=== PATIENT | male | born 1940 | race Caucasian/White ===

== ENCOUNTER → 2017-02-12 | Outpatient (CLI) | payer MEDICARE, OTHER | LOC: RT 11:24 | DX: G47.34 Idiopathic sleep related nonobstructive alveolar hypoventilation (principal) | CPT/HCPCS: 36600; 82803 ==

== ENCOUNTER → 2020-10-12 | Outpatient (CLI) | payer MEDICARE, OTHER | LOC: KOH-I 10:55 | DX: R91.8 Other nonspecific abnormal finding of lung field (principal) | CPT/HCPCS: 71250 ==

== ENCOUNTER → 2020-10-29 | Outpatient (CLI) | payer MEDICARE, OTHER | LOC: MRI 07:25 | DX: C34.12 Malignant neoplasm of upper lobe, left bronchus or lung (principal); C34.11 Malignant neoplasm of upper lobe, right bronchus or lung; G31.9 Degenerative disease of nervous system, unspecified; R90.82 White matter disease, unspecified | CPT/HCPCS: 36415; 70553; 82565; 84520; A9577 ==

== ENCOUNTER → 2020-11-04 | Outpatient (CLI) | payer MEDICARE, OTHER | LOC: HEART 5 10:13 | DX: C34.12 Malignant neoplasm of upper lobe, left bronchus or lung (principal); Z87.891 Personal history of nicotine dependence | CPT/HCPCS: 94010 ==

== ENCOUNTER 2021-08-30 09:30 | Observation (INO) | payer MEDICARE, OTHER ==
[~2021-08-30] VITALS: Ht 165.1 cm; Wt 58.5 kg
[~2021-08-30 09:30] MED LIST: PLAVIX 75 MG TA75 MG PO
[2021-08-30 10:45] LABS: HEMOGLOBIN 10.2 gm/dl (14.0-17.5); RED BLOOD COUNT 3.18 M/UL (4.20-5.50); WHITE BLOOD COUNT 13.8 K/UL (4.5-11.0)
[2021-08-30 11:07] LABS: BUN/CREATININE RATIO 9 (0-10)
[2021-08-30] MEDS ORDERED: DILTIAZEM 24HR180 M1 PO (19:29)
[2021-08-30] MEDS ORDERED: DONEPEZIL HCL5 MG PO (19:29)
[2021-08-30] MEDS ORDERED: CLOPIDOGREL75 MG PO (19:30)
[2021-08-30] MEDS ORDERED: FINASTERIDE5 MG PO (19:30)
[2021-08-30] MEDS ORDERED: GABAPENTIN600 MG PO (19:30)
[2021-08-30] MEDS ORDERED: DOXYCYCLINE HY100 M2 PO (19:31)
[2021-08-30] MEDS ORDERED: GENTEAL SEVERE10 GM EYEBOTH (19:32)
[2021-08-30] MEDS ORDERED: ATORVASTATIN CA10 MG PO (19:33)
[2021-08-30] MEDS ORDERED: LOPRESSOR 50 MG50 MG PO (19:35)
[2021-08-30] MEDS ORDERED: MONTELUKAST SOD10 MG PO (19:35)
[2021-08-30] MEDS ORDERED: OMEPRAZOLE40 MG PO (19:35)
[2021-08-30] MEDS ORDERED: SYSTANE COMPLET10 ML EYEBOTH (19:36)
[2021-08-30] MEDS ORDERED: FLOMAX 0.4 MG0.4 MG PO (19:37)
[2021-08-30] MEDS ORDERED: TRAZODONE HCL100 MG PO (19:38)
[2021-08-30] MEDS ORDERED: JANUVIA50 MG PO (19:39)
[2021-08-30] MEDS ORDERED: LISINOPRIL40 MG PO (19:39)
[2021-08-30] MEDS ORDERED: ASPIRIN EC81 MG PO (19:40)
[2021-08-30] MEDS ORDERED: IPRAT-ALBUT 0.5-3 ML INH (19:43)
[2021-08-30] MEDS ORDERED: DAILY VITE1 EACH PO (19:46)
[2021-08-31 06:29] LABS: WHITE BLOOD COUNT 13.7 K/UL (4.5-11.0)
[2021-08-31 06:31] LABS: RED BLOOD COUNT 2.85 M/UL (4.20-5.50)
--- NOTE | 2021-08-31 17:31 | NUR ---
ORTHOSTATIC VITAL SIGNS OBTAINED THIS SHIFT. LAYING BLOOD PRESSURE 130/59 OXYGEN SATURATION 98% ROOM AIR, HEART RATE 62. SITTING BLOOD PRESSURE 127/62, OXYGEN SATURATION 100% ON ROOM AIR, HEART RATE 65. STANDING BLOOD PRESSURE 128/56, OXYGEN SATURATION 100%, HEART RATE 66.
[2021-09-01 03:01] LABS: HEMOGLOBIN 10.3 gm/dl (14.0-17.5); WHITE BLOOD COUNT 14.5 K/UL (4.5-11.0)
[2021-09-01 03:04] LABS: RED BLOOD COUNT 3.17 M/UL (4.20-5.50)
[2021-09-01 03:30] LABS: BUN/CREATININE RATIO 10 (0-10)
[2021-09-01] MEDS ORDERED: OMNICEF 300 MG300 MG PO (09:49)
--- NOTE | 2021-09-01 11:06 | NUR ---
RT PUT PATIENT'S EVENT MONITOR ON PENDING DISCHARGE.
--- NOTE | 2021-09-01 11:26 | NUR ---
RN GAVE DISCHARGE INSTRUCTION TO PATIENT'S DAUGHTER WARNER OVER THE PHONE. WARNER VERBALIZED UNDERSTANDING. DISCHARGE PAPERWORK SENT WITH PATIENT.
--- NOTE | 2021-09-01 11:47 | NUR ---
REPORT CALLED TO JAJA WITH [facility].
== END 2021-09-01 11:55 | disposition home or self-care (01) ==
LOC: ER1 09:30 → CDU 11:20 → MED SURG 4 13:36
PROVIDERS: Emergency Medicine; Physician Assistant; ADMIT Internal Medicine
DX: I63.521 Cerebral infarction due to unspecified occlusion or stenosis of right anterior cerebral artery (principal); Z20.822 Contact with and (suspected) exposure to COVID-19; I12.9 Hypertensive chronic kidney disease with stage 1 through stage 4 chronic kidney disease, or unspecified chronic kidney disease; E11.22 Type 2 diabetes mellitus with diabetic chronic kidney disease; N18.30 Chronic kidney disease, stage 3 unspecified; N17.9 Acute kidney failure, unspecified; E78.5 Hyperlipidemia, unspecified
CPT/HCPCS: 36415; 70450; 71101; 73630; 80048; 80053; 81001; 82550; 82553; 82962; 83735; 83880; 84484; 85025; 85027; 85610; 85730; 90471; 90715; 93005; 93270; 96375; 96376; 97116-GP-CQ; 97161; 97166; 97530; 99285; G0378; J3475; J7030; U0002

== ENCOUNTER 2021-10-12 18:24 | Observation (INO) | payer MEDICARE, OTHER ==
[~2021-10-12] VITALS: Ht 165.1 cm; Wt 61.2 kg
[~2021-10-12 18:24] MED LIST changes: +ASPIRIN EC81 MG PO; +ATORVASTATIN CA10 MG PO; +CLOPIDOGREL75 MG PO; +DAILY VITE1 EACH PO; +DILTIAZEM 24HR180 M1 PO; +DONEPEZIL HCL5 MG PO; +DOXYCYCLINE HY100 M2 PO; +FINASTERIDE5 MG PO; +FLOMAX 0.4 MG0.4 MG PO; +GABAPENTIN600 MG PO; +GENTEAL SEVERE10 GM EYEBOTH; +IPRAT-ALBUT 0.5-3 ML INH; +LISINOPRIL40 MG PO; +LOPRESSOR 25 MG25 MG PO; +MONTELUKAST SOD10 MG PO; +OMEPRAZOLE40 MG PO; +OMNICEF 300 MG300 MG PO; +SYSTANE COMPLET10 ML EYEBOTH; +TRAZODONE HCL100 MG PO
[2021-10-12 19:23] LABS: HEMOGLOBIN 11.2 gm/dl (14.0-17.5); RED BLOOD COUNT 3.48 M/UL (4.20-5.50); WHITE BLOOD COUNT 15.2 K/UL (4.5-11.0)
[2021-10-12 19:57] LABS: BUN/CREATININE RATIO 8 (0-10)
[2021-10-13 04:02] LABS: HEMOGLOBIN 10.8 gm/dl (14.0-17.5); RED BLOOD COUNT 3.34 M/UL (4.20-5.50); WHITE BLOOD COUNT 14.6 K/UL (4.5-11.0)
[2021-10-13] MEDS ORDERED: ISOSORBIDE MONO30 MG PO (11:57)
[2021-10-13] MEDS ORDERED: ATORVASTATIN CA20 MG PO (11:57)
[2021-10-13] MEDS ORDERED: JANUVIA 100 MG100 MG PO (19:39)
== END 2021-10-13 15:21 | disposition home or self-care (01) ==
LOC: ER1 18:24 → PROG CARE 20:42 → CDU 20:42 → PROG CARE 10-13 02:59
PROVIDERS: Emergency Medicine; ADMIT Internal Medicine
DX: R07.89 Other chest pain (principal); R77.8 Other specified abnormalities of plasma proteins; E87.6 Hypokalemia; I08.0 Rheumatic disorders of both mitral and aortic valves; I45.10 Unspecified right bundle-branch block; I10 Essential (primary) hypertension; F03.90 Unspecified dementia, unspecified severity, without behavioral disturbance, psychotic disturbance, mood disturbance, and anxiety; E78.5 Hyperlipidemia, unspecified; D64.9 Anemia, unspecified; R30.0 Dysuria; E11.9 Type 2 diabetes mellitus without complications; K52.9 Noninfective gastroenteritis and colitis, unspecified; N40.0 Benign prostatic hyperplasia without lower urinary tract symptoms; Z85.118 Personal history of other malignant neoplasm of bronchus and lung; Z92.3 Personal history of irradiation; Z86.73 Personal history of transient ischemic attack (TIA), and cerebral infarction without residual deficits; Z88.8 Allergy status to other drugs, medicaments and biological substances; Z20.822 Contact with and (suspected) exposure to COVID-19; Z98.890 Other specified postprocedural states; Z79.82 Long term (current) use of aspirin; Z79.01 Long term (current) use of anticoagulants; Z79.84 Long term (current) use of oral hypoglycemic drugs; Z79.899 Other long term (current) drug therapy
CPT/HCPCS: 36415; 71045; 80048; 80053; 80061; 81001; 82550; 82553; 82962; 83036; 83735; 83880; 84132; 84439; 84443; 84484; 85025; 85610; 85730; 93005; 94664; 94760; 96374; 99285; C9113; G0378; J1644; U0002